=== PATIENT | female | born 1995 | race American Indian/Alaskan Native ===

== ENCOUNTER 2016-09-12 21:43 | Emergency (ER) | payer MEDICAID, OTHER ==
[2016-09-12 21:56] VITALS: BP 112/77; TEMP 99.4
[2016-09-12 21:57] VITALS: BMI 26.4
--- NOTE | 2016-09-12 22:38 | ED PDOC ---
Arrival/HPI <Art Jiménez - Last Filed: 09/12/16 23:08> - History of Present Illness Time/Duration: 24 hours Symptom Onset: Sudden Symptom Course: Unchanged <Yolis Hayes - Last Filed: 09/13/16 01:15> - General Chief Complaint: Flu-like Symptoms Time Seen by Provider: 09/12/16 21:54 - History of Present Illness Narrative History of Present Illness (Text): 09/12/16 22:38 21 yo F with past history only significant for strep pharyngitis as a child presents with 1 day h/o sore throat, body aches, chills, and swollen tonsils. Patient states she was told as a child to have her tonsils removed due to repeated infections, however she never did. Patient states she woke up yesterday morning with with a sore throat and swollen red tonsils. She admits to recent sick contacts with family members and children at home with URI symptoms. Admits to mild pain with swallowing, but has been able to hold PO fluids down without difficulty, however has had some decreased PO intake due to discomfort. Admits to chills, mild diffuse body aches, sneezing, minimal nonproductive cough. Denies fevers, rashes, CP, SOB, abd pain, n/v/d/c. (Yolis Hayes) Past Medical History - Provider Review Nursing Documentation Reviewed: Yes - Travel History Have you recently traveled outside [place] w/in the past 3 mons?: Yes If Yes, travel location?: [place] - Psychiatric Hx Substance Use: No <Yolis Hayes - Last Filed: 09/13/16 01:15> Family/Social History - Physician Review Nursing Documentation Reviewed: Yes Family/Social History: Hypertension Smoking Status: Never Smoked Hx Alcohol Use: No Hx Substance Use: No <Yolis Hayes - Last Filed: 09/13/16 01:15> Allergies/Home Meds <Art Jiménez - Last Filed: 09/12/16 23:08> <Yolis Hayes - Last Filed: 09/13/16 01:15> Allergies/Adverse Reactions: Allergies No Known Allergies Allergy (Verified 09/12/16 21:56) Review of Systems - Physician Review All systems were reviewed & negative as marked: Yes - Review of Systems Constitutional: Other (chills). absent: Fatigue, Fevers Eyes: absent: Vision Changes, Photophobia, Eye Pain ENT: Sore Throat. absent: Hearing Changes, Tinnitus, Epistaxis, Sinus Congestion Respiratory: Cough (very mild, nonproductive). absent: SOB, Sputum Cardiovascular: absent: Chest Pain, Palpitations, Edema, Calf Pain, ANNE Gastrointestinal: absent: Abdominal Pain, Constipation, Diarrhea, Nausea, Vomiting Genitourinary Female: absent: Dysuria, Frequency Musculoskeletal: absent: Arthralgias, Myalgias Skin: absent: Rash, Skin Lesions Neurological: absent: Headache, Dizziness Endocrine: absent: Diaphoresis, Polyuria, Polydipsia Hemo/Lymphatic: absent: Easy Bleeding, Easy Bruising Psychiatric: absent: Anxiety, Depression <Yolis Hayes - Last Filed: 09/13/16 01:15> Physical Exam Vital Signs Reviewed: Yes Temperature: Afebrile Blood Pressure: Normal Pulse: Regular Respiratory Rate: Normal Appearance: Positive for: Well-Appearing, Non-Toxic, Comfortable Pain Distress: None Mental Status: Positive for: Alert and Oriented X 3 - Systems Exam Head: Present: Atraumatic, Normocephalic Pupils: Present: PERRL Extroacular Muscles: Present: EOMI Conjunctiva: Present: Normal Ears: Present: Normal Mouth: Present: Dry (mildly). No: Drooling Pharnyx: Present: ERYTHEMA, TONSILS ENLARGED (and erythematous, no exhudate). No: EXUDATE, Peritonsilar Swelling, Uvular Deviation, Muffled/Hoarse Voice, Soft Palate/Uvular Edema Nose (Internal): Present: Normal Inspection, Moist. No: Boggy Neck: Present: Normal Range of Motion. No: Meningeal Signs, JVD Respiratory/Chest: Present: Clear to Auscultation, Good Air Exchange. No: Respiratory Distress, Accessory Muscle Use, Wheezes, Rhonchi Cardiovascular: Present: Regular Rate and Rhythm, Normal S1, S2. No: Murmurs Abdomen: Present: Normal Bowel Sounds. No: Tenderness, Distention, Peritoneal Signs, Guarding Upper Extremity: Present: Normal Inspection. No: Cyanosis, Edema Lower Extremity: Present: Normal Inspection. No: Edema, CALF TENDERNESS Neurological: Present: GCS=15, CN II-XII Intact, Speech Normal Skin: Present: Warm, Dry, Normal Color. No: Rashes Lymphatic: Present: Cervical Adenopathy (very mild) Psychiatric: Present: Alert, Oriented x 3, Normal Insight, Normal Concentration <Yolis Hayes - Last Filed: 09/13/16 01:15> Vital Signs Temp Pulse Resp BP Pulse Ox 09/13/16 00:08 99.4 F 94 H 16 98 09/12/16 21:56 99.4 F 92 H 18 112/77 99 Medical Decision Making - Lab Interpretations I have reviewed the lab results: Yes <Art Jiménez - Last Filed: 09/12/16 23:08> Re-evaluation Time: 00:55 Reassessment Condition: Improved - Lab Interpretations I have reviewed the lab results: Yes <Yolis Hayes - Last Filed: 09/13/16 01:15> ED Course and Treatment: Impression: Pt seen and evaluated with medical administrative technician. Pt presented complaining of sore throat, diffuse body aches, and chills. Reports family at home have been sick with similar symptoms. Pt seen and evaluated with medical administrative technician. Aware and agree with HPI, clinical findings, plan, and management. Differential Diagnosis include but are not limited to: tonsillitis vs. pharyngitis vs. strep vs. influenza Plan: -- Rapid influenza, Rapid strep -- Cepacol -- IV fluids -- Reassess and disposition Progress Notes: (Art Jiménez) 09/12/16 22:50 21 yo F presents with sore throat, body aches and chills x 1 day. Mildly clinically dehydrated. Will give Cepacol, 1/2 NS bolus, flu and strep swabs. 09/13/16 00:55 patient states she is feeling better, throat pain has improved. Serology negative for GAS and Influenza A and B. Patient still afebrile, comfortable, speaking in full sentences, no stridor. Stable for discharge home with z-rajiv and PRN cepacol lozenges. All questions answered. Instructed to f/u with PMD and ENT. (Yolis Hayes) - Lab Interpretations Lab Results: Lab Results 09/12/16 23:03: Influenza Typ A,B (EIA) Negative for flu a/b, Grp A Beta Strep Ag Negative - Medication Orders Current Medication Orders: Discontinued Medications Benzocaine/Menthol (Cepacol Sore Throat) 1 lary MT ONCE ONE Stop: 09/12/16 22:38 Last Admin: 09/12/16 23:58 Dose: 1 LARY Sodium Chloride (Sodium Chloride 0.9%) 500 mls @ 999 mls/hr IV .Q31M STA Stop: 09/12/16 23:08 Last Admin: 09/12/16 23:58 Dose: 999 MLS/HR eMAR Start Stop Document 09/12/16 23:58 [email or web address] (Rec: 09/12/16 23:58 [email or web address] [facility] [place]- [id number]) Intravenous Solution Start Date 09/12/16 Start Time 23:58 End Date 09/12/16 - PA / TERMINAL GAUGER / Resident Statement [facility] has reviewed & agrees with the documentation as recorded. [facility] has examined the patient and agrees with the treatment plan. <Art Jiménez - Last Filed: 09/12/16 23:08> Disposition/Present on Arrival <Art Jiménez - Last Filed: 09/12/16 23:08> - Present on Arrival Any Indicators Present on Arrival: No History of DVT/PE: No History of Uncontrolled Diabetes: No Urinary Catheter: No History of Decub. Ulcer: No History Surgical Site Infection Following: None - Disposition Have Diagnosis and Disposition been Completed?: Yes Disposition Time: 01:00 Patient Plan: Discharge <FreddyYolis - Last Filed: 09/13/16 01:15> - Disposition Diagnosis: Pharyngitis Disposition: HOME/ ROUTINE Patient Problems: Current Active Problems Problem Status Diagnosed Pharyngitis Acute Condition: STABLE Discharge Instructions (ExitCare): Pharyngitis (ED) Print Language: TURKMEN Additional Instructions: Please followup with your primary care physician within 1-3 days. Please followup with an ear nose and throat doctor (Dr. Cordero) for further evaluation if you continue having problems. Please return to the ER if you start having fevers or your symptoms worsen. Prescriptions: Benzocaine/Menthol [Cepacol Sore Throat] 1 lary MM QID PRN #30 lary PRN Reason: Sore Throat Azithromycin [Z-Rajiv] 250 mg PO DAILY #6 tab Referrals: [facility] [place] [Outside] - Follow up with primary Chris Cordero DO [Staff Provider] - Follow up with primary
[2016-09-12] MEDS: Benzocaine/Menthol (Cepacol) Lozenge MT ONE (23:58)
[2016-09-12] MEDS: Sodium Chloride 0.9% 500 ML IV STA (23:58)
[2016-09-13 00:08] VITALS: PULSE 94; RESP 16; O2SAT 98
== END 2016-09-13 01:25 | disposition home or self-care (01) ==
LOC: ED 21:43
DX: J02.9 Acute pharyngitis, unspecified (principal)
CPT/HCPCS: 87070; 87430; 87804; 99283; J7040